=== PATIENT | female | born 1965 | race Caucasian/White ===

== ENCOUNTER 2025-02-27 00:28 | Day surgery (SDC) | payer OTHER, SELFPAY ==
[2025-02-16 14:49] VITALS: BMI 29.1
--- NOTE | 2025-02-16 15:17 | PC.NURSE ---
Report to the Outpatient Waiting Room, entrance under the green pavilion located off [facility], at time _0945 on date _02/27/25 . Planned Procedure Time: __1145 .? Time changes happen often and if your time is changed the preop area will call you the afternoon before. - You and your visitor will be asked to self-screen and do not enter if you have any COVID symptoms. Please call surgeon if you need to reschedule. - A mask is optional within the hospital at this time. Patients may have clear liquids (water, carbonated beverages, clear teas, apple juice) until 3 hours prior to surgery with a maximum of 20 ounces. - No food from midnight until time of surgery and no smoking, or chewing tobacco (or any form of nicotine). No chewing gum, candy or mints. Take only the following medications with a SIP of water on the morning of surgery: ___LEVOTHYROXINE DO NOT STOP ANY OF YOUR OTHER PRESCRIPTION MEDICATIONS PRIOR TO SURGERY EXCEPT THE FOLLOWING Hold all vitamins and supplements for 3 days per anesthesiologist. Medications to discontinue per physician N/A----TAKE MEDICATION PRESCRIBED BY DR. LEY FOR THE 5 DAYS LEADING UP TO SURGERY DIRECTED Date to take last dose Please no make-up, nail azeri, hairspray, perfume, deodorant, or body powder the day of surgery.? No jewelry (including any body piercings) or valuables the day of surgery, leave them at home.? Please take a shower or bath the night before, or the morning of, surgery with an antibacterial soap.? Wear comfortable, loose fitting clothing.? Children are encouraged to wear pajamas. - Jewelry must be removed prior to entering the operating room.? Rings and piercings that are not removed may be cut off. - The hospital will not accept responsibility for valuables.? - Please leave all valuables, including medications, at home the day of surgery. If you are going home after surgery, a licensed road driver must drive you home.? - NO public transportation without another adult if you receive anesthesia. - We recommend that an adult stay with you for 24 hours following discharge. - We also recommend that you do not drive, make important decision, drink alcoholic beverages, or take any drugs that were not prescribed by your health care provider for at least 24 hours after your discharge time. Follow any additional instructions given to you from your surgeon. Telephone instructions given to __EVE and asked if any additional questions and then verbalized understanding. Patient advised to call surgeon office or pre surgery nurse liaison [phone] if any additional questions.
--- OUTSIDE RECORDS SUMMARY | 2025-02-27 00:31 | XMS_ITS | Patient Health Record ---
Author Organization [facility] Address [address] [place], [place] [id number] Care Team Providers Care Yard Conductor Name Role Phone PAUL MCINTYRE Unavailable [phone] Millie Skaggs Unavailable Unavailable Reason For Referral No Information Medications Medication SIG (Take, Route, Frequency, Duration) Notes Start Date End Date Status Medrol Dosepak ORAL Medrol DosepakOr iginal MedicationMedrol Dosepak *Reorder from [employer] for eRx and Interaction Alerts* 10/30/2020 Active Plan Of Treatment No Information Insurance Providers Payer Name Payer Address Payer Phone Subscriber Number Group Number Insured Name Patient Relationship to Insured Coverage Start Date Coverage End Date [employer] [address] [place] [address] [id number] EVE HARRISON Self - patient is the insured [employer] [address] [place] [address] [id number] JAMES HARRISON Spouse - patient is the spouse of the insured
--- OUTSIDE RECORDS SUMMARY | 2025-02-27 00:32 | XMS_ITS | Clinical Summary ---
Author Organization [facility] Medical Office Building [address] [place] [address] Care Team Providers Care Self Sealing Fuel Tank Builder Name Role Phone Millie Skaggs MD Primary Care Provider [phone] Claudia Stanley MD Unavailable [phone] Allergies Active Allergy Reactions Criticality Noted Date Comments Sulfa (Sulfonamide Antibiotics) Hives Medium 06/17 Surgical History Surgery Date Site/Laterality Comments AUGMENTATION MAMMAPLASTY 11/16/1986 - 11/15/1987 Bilater al Silicone BREAST CYST ASPIRATION per patient ENDOMETRIAL ABLATION W/ TARA Family History Medical History Relation Name Comments Breast cancer Maternal Grandmother Ovarian cancer Sister Relation Name Status Comments Maternal Grandmother Sister Social History Tobacco Use Types Packs/Day Years Used Date Smoking Tobacco: Never Assessed Personal Safety Answer Date Recorded Have you ever been in or are you currently in a harmful physical or emotional relationship or is someone making you feel afraid or unsafe? Denies 11/07/2023 Comments No Sex and Gender Information Value Date Recorded Sex Assigned at Not on file Legal Sex Female 6:21 AM NOUGAT CANDY MAKER HELPER Gender Identity Not on file Sexual Orientation Not on file Obstetrics History Para Term AB IAB SAB Ectopic Multiple Livin g Live Births 3 3 3 Date Outcome GA Total Labor Labor/2nd/3rd Weight Sex Type Anes PTL Linda A1 A5 Name Clin Term Term Term Last Filed Vital Signs Vital Sign Reading Time Taken Comments Blood Pressure 136/84 11/07/2023 3:55 PM NOUGAT CANDY MAKER HELPER Pulse 74 11/07/2023 3:55 PM NOUGAT CANDY MAKER HELPER Temperature 36.9 C (98.4 F) 11/07/2023 3:55 PM NOUGAT CANDY MAKER HELPER Respiratory Rate 17 11/07/2023 3:55 PM NOUGAT CANDY MAKER HELPER Oxygen Saturation 99% 11/07/2023 3:55 PM NOUGAT CANDY MAKER HELPER Inhaled Oxygen Concentration - - Weight 74.8 kg (165 lb) 11/07/2023 3:55 PM NOUGAT CANDY MAKER HELPER Height 160 cm (5' 3 ) 11/07/2023 3:55 PM NOUGAT CANDY MAKER HELPER Body Mass Index 29.23 11/07/2023 3:55 PM NOUGAT CANDY MAKER HELPER Plan of Treatment Health Maintenance Due Date Last Done Comments Cervical Cancer Screening 1965 Colon Cancer Screening-Colonoscopy 1965 Depression Screening 1965 Hepatitis C Screening 1965 Hepatitis B Screening 1982 Regular Well Visit/Exam 18-64 1982 DTaP/Tdap/Td Vaccine (1 - Tdap) 12/16/2009 12/15/2009 Zoster Vaccine (1 of 2) 2014 Covid-19 Vaccine ( season) 2024 11/07/2021, 02/11/2021, 01/19/2021 Influenza Vaccine (#1) 2024 , 08/16/2020, 08/14/2020, Additional history exists Breast Cancer Screening-Mammogram 06/14/2025 06/14/2024, 03/18/2023, 03/18/2023, Additional history exists Pneumococcal vaccine <65 Aged Out No longer eligible based on patient's age to complete this topic Procedures Procedure Name Priority Date/Time Associated Diagnosis Comments SCREENING MAMMOGRAM BILATERAL W RICCO W IMPLANTS Schedule Routine, Read Routine (OP Routine) 06/14/2024 7:16 AM CDT Screening mammogram, encounter for from Last 3 Months or Most Recently Relevant to Health Maintenance Results * Screening Mammogram Bilateral W Ricco W Implants (06/14/2024 7:16 AM CDT) Anatomical Region Laterality Modality Breast Bilateral Mammography Impressions 06/14/2024 7:59 AM CDT BI-RADS ATLAS category (overall): 1 - Negative There is no mammographic evidence of malignancy. A 1 year screening mammogram is recommended. The patient has been or will be contacted. We recommend annual screening mammography for women at average risk of breast cancer beginning at age 40, based on guidelines of the [place] [employer] (ACR Practice Parameter for the Performance of Screening and Diagnostic Mammography) and [place] [employer]. For women with and elevated risk of breast cancer, please refer to the ACR Practice Parameter for specific screening recommendations. The patient will be entered into a reminder system with a target due date of 1 year for her next screening exam. Narrative 06/14/2024 7:59 AM CDT Screening Mammogram Bilateral W Ricco W Implants: 06/14/24 The study was acquired using full field digital technology and interpreted from soft copy. 2D digital mammographic views, as well as 3D digital tomosynthesis were performed in the implant included and displaced CC and MLO projections. CLINICAL: Screening mammogram, encounter for. No relevant medical history has been documented for this patient. History of breast cancer in Maternal Grandmother. COMPARISONS: 03/18/2023 Screening Mammogram Bilateral W Ricco W Implants 01/15/2022 Screening Mammogram Bilateral W Ricco W Implants BREAST TISSUE: The breasts are heterogeneously dense, which may obscure small masses. FINDINGS: Bilateral subglandular silicone breast implants are stable. The presence of implants limits the sensitivity of mammography. There is no new suspicious finding in either breast on mammogram. us Self Screening Mammogram IMG MAMMO PROCEDURES Fi nal Result from Last 3 Months or Most Recently Relevant to Health Maintenance Insurance [facility] Care Teams Self Sealing Fuel Tank Builder Relationship Specialty Start Date End Date Millie Skaggs MD [address] [facility] [address] [place] [address] PCP - General Family Medicine 03/18/23 Claudia Stanley MD [address] [facility] [address] [place] [address] Referring Physician Gynecology 03/18/23
--- OUTSIDE RECORDS SUMMARY | 2025-02-27 00:32 | XMS_ITS ---
Author Organization [facility] Address [address] [place], [place] [address] Care Team Providers Care Infrastructure Administrator Name Role Phone CORINEJay PAUL Unavailable [phone] Millie Skaggs Unavailable Unavailable REASON FOR VISIT orthotics, The patient has a hammertoe of the right foot and issues with the ball of her foot and arch. She likes to run and exercise and finds that custom orthotics help her. Her present pair is over 3 years old and needs to be replaced Medications Medication SIG (Take, Route, Frequency, Duration) Notes Start Date End Date Status Medrol Dosepak ORAL Medrol DosepakOr iginal MedicationMedrol Dosepak *Reorder from [employer] for eRx and Interaction Alerts* 10/30/2020 Active Vital Signs Height 64.00 in 09/29/2023 Weight 162 lbs 09/29/2023 BMI 27.8 kg/m2 09/29/2023 Height-cm 162.56 cm 09/29/2023 Weight-kg 73.48 kg 09/29/2023 Encounters Encounter Location Date Provider Diagnosis [facility] [address] [facility] [address] [place], [place] [id number] 09/29/2023 PAUL MCINTYRE Other hammer toe(s) (acquired), right foot M20.41 ; Plantar fascial fibromatosis M72.2 ; Metatarsalgia, right foot M77.41 ; Metatarsalgia, left foot M77.42 ; Pain in right foot M79.671 and Left foot pain M79.672 Assessments Encounter Date Diagnosis (ICD Code) Assessment Notes Treatment Notes Treatment Clinical Notes Section Notes 09/29/2023 Other hammer toe(s) (acquired), right foot (ICD-10 - M20.41) Hammertoe Deformity: Discussed various treatments for hammer toes with the patient . Discussed conservative care consisting of padding, wider shoes, anti-inflammatorie s, and orthotics. Discussed surgical treatment options and answered all questions about the intra-operative and post-operative treatment course. 09/29/2023 Plantar fascial fibromatosis (ICD-10 - M72.2) Plantar Fascitis: I discussed anti-inflammatory treatment options and various means of pronation control with the patient. I educated the patient on icing and stretching, supportive shoegear, and the use of orthotic devices. Orthotic Scan: The patient was scanned for functional orthotic devices. This was done in the subtalar joint neutral position in a non-weightbearing fashion. The patient will follow-up in 3-4 weeks time to be dispensed and fitted with the devices. Shoe Gear Recommendation: Advised patient on appropriate shoe gear for protection, healing and good foot health 09/29/2023 Metatarsalgia, right foot (ICD-10 - M77.41) Metatarsalgia: I discussed anti-inflammatory treatment options and various means of immobilization with the patient. I educated the patient on icing and stretching, supportive shoegear, and the use of orthotic devices and bracing. 09/29/2023 Metatarsalgia, left foot (ICD-10 - M77.42) 09/29/2023 Pain in right foot (ICD-10 - M79.671) 09/29/2023 Left foot pain (ICD-10 - M79.672) Plan Of Treatment Treatment Notes Assessment Notes Other hammer toe(s) (acquired), right fo ot Hammertoe Deformity: Discussed various treatments for hammer toes with the patient . Discussed conservative care consisting of padding, wider shoes, anti-inflammatories, and orthotics. Discussed surgical treatment options and answered all questions about the intra-operative and post-operative treatment course. Plantar fascial fibromatosis Plantar Fascitis: I discussed anti-inflammatory treatment options and various means of pronation control with the patient. I educated the patient on icing and stretching, supportive shoegear, and the use of orthotic devices. Orthotic Scan: The patient was scanned for functional orthotic devices. This was done in the subtalar joint neutral position in a non-weightbearing fashion. The patient will follow-up in 3-4 weeks time to be dispensed and fitted with the devices. Shoe Gear Recommendation: Advised patient on appropriate shoe gear for protection, healing and good foot health Metatarsalgia, right foot Metatarsalgia: I discussed anti-inflammatory treatment options and various means of immobilization with the patient. I educated the patient on icing and stretching, supportive shoegear, and the use of orthotic devices and bracing. Next Appt Details Follow Up: 4 Weeks, Reason: Orthotic dispense Progress Notes * EVE HARRISON WDOB:[birth year] (58 yo F)Acc No.[id number]:09/29/2023 Patient: RAJNI ESTRELLANNA Aster Provider: Ted Mcintyre DPM :1965 A ge:58 Y S ex:Female Date:09/29/2023 Address:[address] [place], [place] [id number] Subjective: * Chief Complaints: * 1 . Orthotics. 2. The patient has a hammertoe of the right foot and issues with the ball of her foot and arch. She likes to run and exercise and finds that custom orthotics help her. Her present pair is over 3 years old and needs to be replaced. * HPI: H PI: New Complaint E stablished patient presents with a new complaint., Patient complains of an issue to _ Daniele feet.. pt stats that she would like new orthtoics current pair over 3 years old. BS . * ROS: G eneral / Constitutional: Patient denies c hills, fever, weakness, night sweats. M usculoskeletal: Patient denies c hildhood foot problems, weakness. P atient complains of o rthotic use, arch pain, joint pain, hammertoes. P eripheral Vascular: Patient denies u lceration of feet, cold extremities. ? S kin: Patient denies u lcerations, discoloration. ? N eurologic: Patient denies b alance difficulty, confusion, difficulty speaking, dizziness. * Medical History: * Medications: T aking Medrol Dosepak ORAL , Notes to Pharmacist: Medrol DosepakOriginal MedicationMedrol Dosepak *Reorder from [facility] for eRx and Interaction Alerts* Objective: * Vitals: W t:162lbs, Wt-k.48 kg, Ht: 64.00 in, Ht-cm: 162.56 cm, BMI:27.8Index, Body Surface Area: 1.82. * Examination: C onstitutional: Constitutional T he patient is awake, alert, well developed, well groomed and well nourished.. D ermatologic: Skin findings: S kin is warm, dry, supple with no breaks in the skin.. V ascular: Dorsalis pedis pulse: 2 /4, bilateral. Posterior tibial pulse: 2 /4, bilaterally. Capillary refill: l ess than 3 seconds. Edema: N o edema, bilateral. N eurologic: Gross sensation G ross sensation is intact to light touch..? M usculoskeletal: Muscle Strength M uscle strength is 5/5 in regards to dorsiflexion, plantarflexion, inversion, and eversion in bilateral lower extremities.. Pain on palpation t enderness to the distal plantar fascia and bilateral metatarsal heads. Hammertoes d orsally contracted digit, 2nd toe of the right foot. The deformity is semi-rigid. Assessment: * Assessment: 1. P lantar fascial fibromatosis - M72.2 (Primary) 2 . O ther hammer toe(s) (acquired), right foot - M20.41 3 . M etatarsalgia, right foot - M77.41 4 . M etatarsalgia, left foot - M77.42 5 . P ain in right foot - M79.671 6 . L eft foot pain - M79.672 Plan: * Treatment: 2. O ther hammer toe(s) (acquired), right foot Notes: Hammertoe Deformity: Discussed various treatments for hammer toes with the patient . Discussed conservative care consisting of padding, wider shoes, anti-inflammatories, and orthotics. Discussed surgical treatment options and answered all questions about the intra-operative and post-operative treatment course. ? 3. M etatarsalgia, right foot Notes: Metatarsalgia: I discussed anti-inflammatory treatment options and various means of immobilization with the patient. I educated the patient on icing and stretching, supportive shoegear, and the use of orthotic devices and bracing. * Procedure Codes: L 3020 FT INSRT REMV MOLD LNGTUDNL SUPP EA, Modifiers: RT , NU, L3020 FT INSRT REMV MOLD LNGTUDNL SUPP EA, Modifiers: LT , NU * Follow Up: 4 Weeks (Reason: Orthotic dispense) * Billing Information: * Visit Code: 56738 Office Visit, Est Pt., Level 3. * Procedure Codes: L3020 FT INSRT REMV MOLD LNGTUDNL SUPP EA. Modifiers: RT, NU L3020 FT INSRT REMV MOLD LNGTUDNL SUPP EA. Modifiers: LT, NU * MILL TECHNICIAN Sign off status: Completed true * Provider: Ted Mcintyre DPM Date: 11/29/2022 Generated for Alexandria franks/Hailey/Jerrell on: 0 02/27/2025 12:31 AM CDT History and Physical Notes * HPI (History of Present Illness) Category Sub-Category Detail Notes Category Not es HPI New Complaint Established brenda ent presents with a new complaint., Patient complains of an issue to _ Daniele feet.. pt stats that she would like new orthtoics current pair over 3 years old. BS Examination Category Sub-Category Detail Notes Category Not es Dermatologic Skin findings: Skin is warm, dr y, supple with no breaks in the skin. Neurologic Gross sensation Gross sensation is intact to light touch. Vascular Dorsalis pedis pulse: 2/4, bilateral Edema: No edema, bilateral Capillary refill: less than 3 seconds Posterior tibial pulse: 2/4, bilaterally Musculoskeletal Muscle Strength Muscle strength is 5/5 in regards to dorsiflexion, plantarflexion, inversion, and eversion in bilateral lower extremities. Pain on palpation tenderness to the di stal plantar fascia and bilateral metatarsal heads Hammertoes dorsally contracted digit, 2nd toe of the right foot. The deformity is semi-rigid Constitutional Constitutional The patient is a wake, alert, well developed, well groomed and well nourished.
--- OUTSIDE RECORDS SUMMARY | 2025-02-27 00:32 | XMS_ITS | Referral Summary ---
Author Organization [facility] Medical [facility] Building [address] [place] [address] Care Team Providers Care Wage And Salary Specialist Name Role Phone Millie Skaggs MD Primary Care Provider [phone] Claudia Stanley MD Unavailable [phone] Allergies Active Allergy Reactions Criticality Noted Date Comments Sulfa (Sulfonamide Antibiotics) Hives Medium 06/17 Social History Tobacco Use Types Packs/Day Years [...] on file Legal Sex Female 6:21 AM SKIVER WELT END Gender Identity Not on file Sexual Orientation Not on file Last Filed Vital Signs Vital Sign Reading Time Taken Comments Blood Pressure 136/84 11/07/2023 3:55 PM SKIVER WELT END Pulse 74 11/07/2023 3:55 PM SKIVER WELT END Temperature 36.9 C (98.4 F) 11/07/2023 3:55 PM SKIVER WELT END Respiratory Rate 17 11/07/2023 3:55 PM SKIVER WELT END Oxygen Saturation 99% 11/07/2023 3:55 PM SKIVER WELT END Inhaled Oxygen Concentration - - Weight 74.8 kg (165 lb) 11/07/2023 3:55 PM SKIVER WELT END Height 160 cm (5' 3 ) 11/07/2023 3:55 PM SKIVER WELT END Body Mass Index 29.23 11/07/2023 3:55 PM SKIVER WELT END Plan of Treatment Not on file Procedures Procedure Name Priority Date/Time Associated Diagnosis [...] age 40, based on guidelines of the [place] [employer] (ACR Practice Parameter for the Performance of Screening and Diagnostic Mammography) and [place] [employer]. For women [...] Most Recently Relevant to Health Maintenance Insurance [facility] CLAIMS [facility] PPO Care Teams Wage And Salary Specialist Relationship Specialty Start Date End Date Millie Skaggs MD [address] [facility] [address] [place] [address] PCP - General Family Medicine 03/18/23 Claudia Stanley MD [address] [place] [address] Referring Physician Gynecology 03/18/23
--- OUTSIDE RECORDS SUMMARY | 2025-02-27 00:32 | XMS_ITS ---
Author Organization [facility] Address [address] [place], [place] [address] Care Team Providers Care Metal Drilling Machine Operator Name Role Phone MIGUELINA PAUL Unavailable [phone] Millie Skaggs Unavailable Unavailable REASON FOR VISIT *Orthotic pick-up, The patient is here to be dispensed and fitted for custom orthotics. She uses them for ball of foot pain and hammertoes Medications Medication SIG (Take, Route, Frequency, Duration) Notes Start Date End Date Status Medrol Dosepak ORAL Medrol DosepakOr iginal MedicationMedrol Dosepak *Reorder from [facility] for eRx and Interaction Alerts* 10/30/2020 Active Vital Signs Height 64.00 in 10/27/2023 Weight 162 lbs 10/27/2023 BMI 27.8 kg/m2 10/27/2023 Height-cm 162.56 cm 10/27/2023 Weight-kg 73.48 kg 10/27/2023 Encounters Encounter Location Date Provider Diagnosis [facility] [address] [facility] [address] [place], [place] [id number] 10/27/2023 PAUL MCINTYRE Other hammer toe(s) (acquired), right foot M20.41 ; Plantar fascial fibromatosis M72.2 ; Metatarsalgia, right foot M77.41 ; Metatarsalgia, left foot M77.42 ; Pain in right foot M79.671 and Left foot pain M79.672 Assessments Encounter Date Diagnosis (ICD Code) Assessment Notes Treatment Notes Treatment Clinical Notes Section Notes 10/27/2023 Other hammer toe(s) (acquired), right foot (ICD-10 - M20.41) Hammertoe Deformity: Discussed various treatments for hammer toes with the patient . Discussed conservative care consisting of padding, wider shoes, anti-inflammatorie s, and orthotics. Discussed surgical treatment options and answered all questions about the intra-operative and post-operative treatment course. 10/27/2023 Plantar fascial fibromatosis (ICD-10 - M72.2) Plantar Fascitis: I discussed anti-inflammatory treatment options and various means of pronation control with the patient. I educated the patient on icing and stretching, supportive shoegear, and the use of orthotic devices. Orthotic Dispense: The orthotic devices were dispensed and fitted. It was noted that the orthotic conformed well to the patient's foot in the subtalar joint neutral position. The patient was educated on the device's use, as well as the gradual break-in period for the device. 10/27/2023 Metatarsalgia, right foot (ICD-10 - M77.41) Metatarsalgia: I discussed anti-inflammatory treatment options and various means of immobilization with the patient. I educated the patient on icing and stretching, supportive shoegear, and the use of orthotic devices and bracing. 10/27/2023 Metatarsalgia, left foot (ICD-10 - M77.42) 10/27/2023 Pain in right foot (ICD-10 - M79.671) 10/27/2023 Left foot pain (ICD-10 - M79.672) Plan [...] and the use of orthotic devices. Orthotic Dispense: The orthotic devices were dispensed and fitted. It was noted that the orthotic conformed well to the patient's foot in the subtalar joint neutral position. The patient was educated on the device's use, as well as the gradual break-in period for the device. Metatarsalgia, right foot Metatarsalgia: I discussed anti-inflammatory treatment options and various means of immobilization with the patient. I educated the patient on icing and stretching, supportive shoegear, and the use of orthotic devices and bracing. Next Appt Details Follow Up: prn, Reason: Progress Notes * RAJNI HARRISONNNA WDOB:[birth year] (58 yo F)Acc No.[id number]:10/27/2023 Patient: EVE ESTRELLA W Provider: Ted Mcintyre DPM :1965 A ge:58 Y S ex:Female Date:10/27/2023 Address:[address] [place] [address], [place] [address] Subjective: * Chief Complaints: * 1 . *Orthotic pick-up. 2. The patient is here to be dispensed and fitted for custom orthotics. She uses them for ball of foot pain and hammertoes. * HPI: H PI: Follow Up Visit P atient presents for follow up visit for orthotic draft roller picker. M A: As. * ROS: G eneral / Constitutional: Patient [...] Pharmacist: Medrol DosepakOriginal MedicationMedrol Dosepak *Reorder from [facility] for eRx and Interaction Alerts* Objective: * [...] use of orthotic devices and bracing. * Follow Up: p rn * Billing Information: * Visit Code: 80285 Office Visit, Est Pt., Level 3. * Procedure Codes: * RANCH HAND Sign off status: Completed true * Provider: Ted Mcintyre DPM Date: 12/28/2022 Generated for Alexandria Padgett/Jerrell on: 0 02/27/2025 12:32 AM CDT History and Physical Notes * HPI (History of Present Illness) Category Sub-Category Detail Notes Category Not es HPI Follow Up Visit Patient presents for follow up visit for orthotic draft roller picker. MA: As Examination Category Sub-Category Detail Notes Category Not [...]
--- OUTSIDE RECORDS SUMMARY | 2025-02-27 00:32 | XMS_ITS | Continuity of Care Document ---
Author Name [facility] Organization [facility] Care Team Providers Care Connie Cleaner Name Role Phone [facility] Unavailable Unavailable Medications Combined list of outpatient medications from Department of Defense and Veterans Affairs facilities.Medications provided include 1) outpatient medications from the last 15 months, and 2) patient-reported medications. Medication Details Route Status Patient Instructions Prescription Expires Prescription Number Last Dispense Date Ordering Provider Order Date Order Qty Source loteprednol 0.5% ophthalmic gel INSTILL 1 DROP IN EACH EYE TWICE A DAY, # 5 g, 3 total refill(s ), Acute Complet ed 08/10/20232022 5.0 Ambulat ory Pharmac y Immunizations Combined list of available immunizations from the Department of Defense and Veterans Affairs facilities. Immunization Series Date Given Administered By Site Reaction Lot Number CVX Code Drug Roller Shop Utility Worker Status Comments Source influenza virus vaccine,split 2005 zzLef t Arm [id number] 15 GlaxoSmithKli ne complet ed influenza virus vaccine,s plit 10/29/06 Given Ambulat ory Pharmac y influenza virus vaccine,split 2005 [id number] 15 GlaxoSmithKli ne complet ed influenza virus vaccine,s plit 10/29/06 Given Ambulat ory Pharmac y influenza virus vaccine,split 2004 zzLef t Arm [id number] 15 sanofi pasteur complet ed influenza virus vaccine,s plit 10/02/05 Given Ambulat ory Pharmac y influenza virus vaccine, whole virus 2002 zzLef t Arm [id number] 16 sanofi pasteur complet ed influenza virus vaccine, whole virus 10/11/03 Given Ambulat ory Pharmac y influenza virus vaccine, whole virus 2002 [id number] 16 sanofi pasteur complet ed influenza virus vaccine, whole virus 10/11/03 Given Ambulat ory Pharmac y influenza virus vaccine, whole virus 2000 zzLef t Arm [id number] 16 sanofi pasteur complet ed influenza virus vaccine, whole virus 10/21/01 Given Ambulat ory Pharmac y influenza virus vaccine, whole virus 2000 [id number] 16 sanofi pasteur complet ed influenza virus vaccine, whole virus 10/21/01 Given Ambulat ory Pharmac y Procedures Combined list of: 1) Procedures from Department of Veterans Affairs facilities going back up to thelast 18 months, not all ID non-surgical procedures are included; 2) All procedures from the Department of Defense facilities. Procedure Procedure Type Code Date Perfomer Comments Sourc e No data available for this section Ambulatory P harmacy Assessment and Plan Combined list of future care activities from Department of Defense and Veterans [facility] facilities (e.g., assessment and plan notes, appointments, orders, and referrals). Additional future care activities may be listed in the Plan of Care section. Result Assessment and Plan Date Source Assessment and Plan No data available for this section 02/27/2025 Ambulatory Pharmacy Functional Status Combined list of recent functional and cognitive assessments recorded at Department of Defense and Veterans Affairs (ID).VA Functional [place] Measurement (FIM) Scale: 1 = Total Assistance (Subject = 0% +), 2 = Maximal Assistance (Subject = 25% +), 3 = Moderate Assistance (Subject = 50% +), 4 = Minimal Assistance (Subject = 75% +), 5 = Supervision, 6 = Modified [place] (Device), 7 = Complete [place] (Timely, Safely). Assessment Date/Time Source Assessment Type Assessment Skill Assessment Score Assessment Details No data available for this section
--- OUTSIDE RECORDS SUMMARY | 2025-02-27 00:32 | XMS_ITS | Encounter Summary ---
Author Organization [facility] Address [facility] [place] [address] Care Team Providers Care Rn Integrity Name Role Phone Millie Skaggs MD Primary Care Provider [phone] Conchita Brooks MD Unavailable [phone] Claudia Stanley MD Unavailable [phone] Encounter Details Date Type Department Care Team (Latest Contact Info) Description 07/09/2018 Abstract [facility] , Sonny Mraia MD Social History Tobacco Use Types Packs/Day Years Used Date Smoking Tobacco: Never Smokeless Tobacco: Never Alcohol Use Standard Drinks/Week Comments Yes 0 (1 standard drink = 0.6 oz pur e alcohol) socially Comments No Sex and Gender Information Value Date Recorded Sex Assigned at Not on file Legal Sex Female 6:01 PM CDT Gender Identity Not on file Sexual Orientation Not on file documented as of this encounter Plan of Treatment Not on file documented as of this encounter Visit Diagnoses Not on filedocumented in this encounter Additional Health Concerns Infection Onset Date Last Indicated Resolved Time COVID-19 Rule Out 10/18/2021 10/18/2021 10/18/2021 11:27 AM AMMONIUM NITRATE NEUTRALIZER COVID-19 Confirmed 10/18/2021 10/18/2021 12:33 AM AMMONIUM NITRATE NEUTRALIZER documented as of this encounter Care Teams Rn Integrity Relationship Specialty Start Date End Date Millie Skaggs MD [address] [facility] [address] [place] [address] PCP - General FAMILY PRACTICE 01/23/18 Conchita Brooks MD [address] [facility] [address] [place] [address] DERMATOLOGY 10/28/23 Claudia Stanley MD [address] [place] [address] OBGYN 10/28/23 documented as of this encounter
--- OUTSIDE RECORDS SUMMARY | 2025-02-27 00:32 | XMS_ITS | Clinical Summary ---
Author Organization [facility] Address [address] [place] [address] Care Team Providers Care Cigarette Making Machine Hopper Feeder Name Role Phone Millie Skaggs MD Primary Care Provider [phone] Conchita Brooks MD Unavailable [phone] Claudia Stanley MD Unavailable Allergies Active Allergy Reactions Criticality Noted Date Comments Sulfa Antibiotics Hives 07/08/2017 Medications Multiple Vitamins-Minerals (ICAPS AREDS 2 OR) Active probiotic capsule Take 1 capsule by mouth 3 (three) times daily with meals. Active COMBIPATCH 0.05-0.25 MG/DAY LEXIE 1 PATCH TWICE WEEKLY Active LOTEMAX 0.5 % ophthalmic gel Active vitamin D3, cholecalciferol, 5000 UNITS capsule Take 1 capsule (125 mcg total) by mouth daily. Active B Complex Cap capsule Take 1 capsule by mouth daily. Active Carboxymethylcell ulose Sodium 1 % Gel Apply 1 drop to eye. Active ALTRENO 0.05 % Lotion 021 Active Roflumilast (ZORYVE) 0.3 % Cream Apply 1 Application topically daily. 023 Active Sulfacetamide Sodium-Sulfur 10-5 % Liquid Apply topically daily. 023 Active spironolactone (ALDACTONE) 100 MG tablet Take 1 tablet (100 mg total) by mouth daily. 024 Active valACYclovir (VALTREX) 1 g tabletIndications :Recurrent cold sores TAKE TWO TABLETS NOW AND THEN TWO TABLETS IN TWELVE HOURS 20 tablet 024 Active levothyroxine (SYNTHROID) 50 MCG tabletIndications :Acquired hypothyroidism Take 1 tablet (50 mcg total) by mouth every morning. 90 tablet 3 025 Active levothyroxine (SYNTHROID) 50 MCG tabletIndications :Acquired hypothyroidism TAKE 1 TABLET(50 MCG) BY MOUTH EVERY MORNING 90 tablet 025 2024 Discontinued levothyroxine (SYNTHROID) 50 MCG tabletIndications :Acquired hypothyroidism TAKE 1 TABLET(50 MCG) BY MOUTH EVERY MORNING 90 tablet 025 2024 Discontinued(R eorder) Active Problems Problem Noted Date Diagnosed Date Chondromalacia, patella, right 07/28/2024 Osteoarthritis of right patellofemoral joint Mitral valve insufficiency, unspecified etiology 04/08/2024 CUELLAR (dyspnea on exertion) 04/07/2024 Pure hypercholesterolemia 04/07/2024 COVID-19 virus infection 10/20/2021 Pulmonary nodule 07/26/2018 Abdominal pain, colicky 01/28/2018 Abdominal bloating 01/07/2018 At high risk for breast cancer 07/08/2017 Neck muscle spasm 05/06/2017 SI joint arthritis 05/06/2017 Knee pain, right 12/12/2016 Allergic rhinitis 11/14/2015 Bright red blood per rectum 11/14/2015 Cervical disc disease 11/14/2015 Chronic low back pain 11/14/2015 Menopausal hot flushes 11/14/2015 Overview (03/07/2019): Description: paroxetine from chief psychologist Jesus 07/30/2011 Acne vulgaris 07/30/2011 Immunizations Immunization Administration Dates Next Due Fluzone 6 Months+ Quad (0.5 mL Prefilled Syringe) 11/07/2021,08/16/2020,09/26/2019 Influenza (Generic) 08/14/2020, 5,10/29/2006,2004,10/11/2003,10/21/2001 Influenza Adult (Generic) 09/26/2019 PFIZER COVID-19 (ORIGINAL FORMULATION, PURPLE CAP) mRNA, LNP-S, PF, 30 MCG/0.3 ML DOSE 11/07/2021 Td (Tenivac) preservative free 12/15/2009 Family History Medical History Relation Comments Diabetes Mother Heart Disease Mother Hypertension Mother Cancer Paternal Grandfather Ovarian Cancer Sister Relation Status Comments Father Other biological fathe r unknown Mother Alive leaky valve Paternal Grandfather colorectal Sister ovarian Social History Tobacco Use Types Packs/Day Years Used Date Smoking Tobacco: Never Passive Smoke Exposure: Never Smokeless Tobacco: Never Tobacco Cessation:Counseling Given: No Comments:physician will discuss if necessary Alcohol Use Standard Drinks/Week Comments Yes 0 (1 standard drink = 0.6 oz pur e alcohol) socially PHQ-2 Answer Date Recorded Patient Health Questionnaire-2 Score 2 12/02/2023 Comments No Sex and Gender Information Value Date Recorded Sex Assigned at Not on file Legal Sex Female 6:01 PM CDT Gender Identity Not on file Sexual Orientation Not on file Last Filed Vital Signs Vital Sign Reading Time Taken Comments Blood Pressure 126/86 10/06/2024 9:50 AM WHEEL BLOCKER Pulse 71 10/06/2024 9:50 AM WHEEL BLOCKER Temperature 36.6 C (97.8 F) 10/06/2024 9:50 AM WHEEL BLOCKER Respiratory Rate 14 10/06/2024 9:50 AM WHEEL BLOCKER Oxygen Saturation 99% 10/06/2024 9:50 AM WHEEL BLOCKER Inhaled Oxygen Concentration - - Weight 78.6 kg (173 lb 3.2 oz) 10/06/2024 9:50 A M WHEEL BLOCKER Height 160 cm (5' 3 ) 10/06/2024 9:50 AM WHEEL BLOCKER Body Mass Index 30.68 10/06/2024 9:50 AM WHEEL BLOCKER Plan of Treatment Health Maintenance Due Date Last Done Comments Cervical Cancer Screening Pap Smear (Age 30 to 64) Every 3 Years 1964 Pneumococcal Vaccine: Pediatrics (0 to 5 Years) and At-Risk Patients (6 to 49 Years) (1 of 2 - PCV) 1970 Hepatitis C 1982 Cervical Cancer Screening Pap with HPV Testing (Age 30 to 64) Every 5 Years 1994 DTaP, Tdap and Td Vaccines (1 - Tdap) 12/16/2009 12/15/2009 Zoster Vaccines (1 of 2) 2014 RSV Immunization or 60+ Years (1 - Risk 60-74 years 1-dose series) 2024 COVID-19 Vaccine ( season) 2024 11/07/2021, 02/11/2021, 01/19/2021 PHQ-2 (Physician [place]) 11/16/2024 12/02/2023 Annual Physical 10/06/2025 10/06/2024, 10/16, 05/09/2021 Colorectal Cancer Screening Colonoscopy (10 Years) 12/18/2025 12/18/2015, 11/01/2014 Mammogram Screening 06/14/2026 06/14/2024, 06/14/2024, 03/18/2023, Additional history exists Cervical Cancer Screening with HPV 10/30/2031 Postponed from 1994 (Going to Outside Clinic) Meningococcal B Vaccine Aged Out No l onger eligible based on patient's age to complete this topic Meningococcal Vaccine Aged Out No rama jimmy eligible based on patient's age to complete this topic RSV Immunizations Under 20 Months Aged Out No longer eligible based on patient's age to complete this topic Procedures Procedure Name Priority Date/Time Associated Diagnosis Comments TSH W/REFLEX Routine 01/30/2025 7:49 AM CDT Acquired hypothyroidism MAMMOGRAM GENERIC (SCAN ORDER) 06/14/2024 COLONOSCOPY Routine 12/18/2015 12:00 AM WHEEL BLOCKER from Last 3 Months or Most Recently Relevant to Health Maintenance Results * TSH W/REFLEX (01/30/2025 7:49 AM CDT) TSH 2.03 0.40 - 4.50 mIU/L [facility] 01/30/2025 7:49 AM CDT 01/30/2025 7:49 AM CDT Narrative [facility] - JOSE ORDERS - 01/31/2025 1:44 AM CDT FASTING:UNKNOWN FASTING: UNKNOWN Resulting Agency Comment Performing Organization Information: Site ID: [place] Name: [facility] Address: [address] [place] [address] [place] [address] Director: Ricky Avalos MD us Millie Skaggs MD LABORATORY Final Result [facility] [address] [place] [address], [place] * MAMMOGRAM GENERIC (SCAN ORDER) (06/14/2024) Anatomical Region Laterality Modality Other 06/14/2024 us Doc [facility] Scanned SCANNING Final Resu lt * Colonoscopy (12/18/2015 12:00 AM WHEEL BLOCKER) 12/18/2015 12/18/2015 Narrative [facility] TO EPIC CONVERSION - 12/18/2015 12:00 AM WHEEL BLOCKER Documented hx of procedure Procedure Note , Generic Conversion, - 09/19/2018 Documented hx of procedure us Generic Conversion Md [facility]DEL[facility] PROCEDURE ORDERABLES Final Result [facility] TO EPIC CONVERSION from Last 3 Months or Most Recently Relevant to Health Maintenance Insurance [facility] Care Teams Cigarette Making Machine Hopper Feeder Relationship Specialty Start Date End Date Millie Skaggs MD [address] [facility] [address] [place] [address] PCP - General FAMILY PRACTICE 01/23/18 Conchita Brooks MD [address] [facility] [address] [place] [address] DERMATOLOGY 10/28/23 Claudia Stanley MD [address] [facility] [address] [place] [address] OBGYN 10/28/23
--- OUTSIDE RECORDS SUMMARY | 2025-02-27 00:32 | XMS_ITS | Clinical Summary ---
Author Organization [facility] Address [address] [place] [address] Care Team Providers Care Automobile Body Repair Supervisor Name Role Phone Millie Skaggs MD Primary Care Provider [phone] Source Comments [facility],non-owned Affiliates and Associated Physician Practices is amultiple site organization consisting of ambulatory clinics and hospital sitesin [place], [place], [place] and [place]. This disclosure is being madepursuant to the Care Everywhere program and may not contain all information available regarding this patient. Last updated 18.[facility] Allergies Active Allergy Reactions Criticality Noted Date Comments Sulfur Skin Reactions 07/30/2011 Medications * Be aware that medications may not be up to date on this document. Alwaysverify current medications with the patient. valACYclovir (VALTREX) 1 GM tablet Take two tablets now and then two tablets in twelve hours 12 tablet 8 Active Additional Information Patient not taking.Reported on 09/21/2024 estradiol-noret hindrone (COMBIPATCH) 0.05-0.25 MG/DAY patch Apply 1 patch to skin Two times a week 0 Active vitamin D3 (CHOLECALCIFERO L) 125 MCG (5000 UT) capsule Take 1 (one) capsule by mouth once daily Active REFRESH CELLUVISC 1 % ophthalmic gel Instill 1 (one) drop into both eyes as needed 0 Active levothyroxine (Synthroid) 50 MCG tablet Take 1 (one) tablet by mouth every morning 4 Active loteprednol (Lotemax) 0.5 % ophthalmic gel Instill 1 (one) drop into both eyes 2 times daily 3 Active Tretinoin (Altreno) 0.05 % lotionIndicatio ns:Acne vulgaris Apply to affected area once daily 45 g 11 4 Active sulfacetamide sodium-sulfur (Clenia) 10-5 % emulsionIndicat ions:Acne vulgaris,Rosace a Apply to affected area once daily 227 g 11 4 Active spironolactone (Aldactone) 100 MG tabletIndicatio ns:Acne vulgaris Take 1 (one) tablet by mouth once daily Take 1 pill (100 mg) by mouth once daily 90 tablet 11 4 Active Roflumilast (Zoryve) 0.3 % CREAIndications :Other psoriasis 1 Application by Apply externally route once daily 60 g 3 4 Active clobetasol (Temovate) 0.05 % solutionIndicat ions:Other psoriasis Apply back of scalp twice daily when itchy. 30 days supply. 50 mL 3 4 Active Active Problems Problem Noted Date Diagnosed Date Osteoarthritis of right patellofemoral joint Mitral valve insufficiency 04/08/2024 Pure hypercholesterolemia 04/07/2024 COVID-19 virus infection 10/20/2021 Pulmonary nodule 07/26/2018 Abdominal pain, colicky 01/28/2018 Abdominal bloating 01/07/2018 At high risk for breast cancer 07/08/2017 Neck muscle spasm 05/06/2017 SI joint arthritis 05/06/2017 Knee pain, right 12/12/2016 Allergic rhinitis 11/14/2015 Cervical disc disease 11/14/2015 Bright red blood per rectum 11/14/2015 Chronic low back pain 11/14/2015 Menopausal hot flushes 11/14/2015 Overview (06/18/2019): Overview: Description: paroxetine from music professor Josefa 07/30/2011 Acne 07/30/2011 Immunizations Immunization Administration Dates Next Due INFLUENZA VACCINE 08/14/2020 Family History Medical History Relation Name Comments Cancer - Skin, Non Melanoma Brother Cancer - Skin, Non Melanoma Father Cancer - Skin, Melanoma Neg Hx Relation Name Status Comments Brother Father Social History Tobacco Use Types Packs/Day Years Used Date Smoking Tobacco: Never Smokeless Tobacco: Never Alcohol Use Standard Drinks/Week Comments Yes 0 (1 standard drink = 0.6 oz pur e alcohol) Comments Unknown Sex and Gender Information Value Date Recorded Sex Assigned at Not on file Legal Sex Female 5:18 PM QUALITY PROCESS LEAD Gender Identity Not on file Sexual Orientation Not on file Plan of Treatment Health Maintenance Due Date Last Done Comments COLOGUARD (AGES 45-75) - COLON CA SCREENING 1964 COLON MONITORING 1964 COLONOSCOPY - COLON CA SCREENING 1964 CT COLONOGRAPHY - COLON CA SCREENING 1964 Colorectal Cancer Screening 1964 FIT - COLON CA SCREENING 1964 FLEX SIG - COLON CA SCREENING 1964 PAP SMEAR 1964 HIV SCREENING 1979 HEPATITIS C SCREENING 06/27/1982 DTAP/TDAP/TD VACCINES (1 - Tdap) 1983 PNEUMOCOCCAL VACCINE 50+ (1 of 1 - PCV) 2014 ZOSTER VACCINE (1 of 2) 2014 COVID-19 VACCINE (2 - season) 2024 11/07/2021 DEPRESSION SCREENING 11/16/2024 INFLUENZA VACCINE (Season Ended) 2025 11/07/2021, 08/16/2020, 08/14/2020, Additional history exists MAMMOGRAM 06/14/2026 06/14/2024, 05/18, 06/14/2024, Additional history exists LIPID TESTING 11/04/2028 11/04/2023, 07/18, 04/05/2019 Respiratory Syncytial Virus (RSV) Vaccine Pt: or over 60 yrs (1 - 1-dose 75+ series) 2039 HEPATITIS B VACCINE Aged Out No longe r eligible based on patient's age to complete this topic HIB VACCINE Aged Out No longer eligi ble based on patient's age to complete this topic HPV VACCINE Aged Out No longer eligi ble based on patient's age to complete this topic MENINGOCOCCAL (Group B) VACCINE SHARED DECISION-MAKING Aged Out No longer eligible based on patient's age to complete this topic MENINGOCOCCAL GROUPS A/C/Y/W VACCINE Aged Out No longer eligible based on patient's age to complete this topic PNEUMOCOCCAL VACCINE Aged Out No long er eligible based on patient's age to complete this topic Insurance [facility] [place] [employer] [facility] [place] A[employer] Care Teams Automobile Body Repair Supervisor Relationship Specialty Start Date End Date Millie Skaggs MD [address] [facility] [address] [place] [phone] PCP - General 05/05/18
--- NOTE | 2025-02-27 08:29 | WPDHPUPDATE1 ---
History and Physical Update Update Date/Time: 02/27/25 08:29 History and Physical has been reviewed, including an updated exam of the patient. There are NO changes in the patient's condition. Risks, benefits, and alternatives have been discussed and questions answered. Patient agrees to proceed with procedure.
--- NOTE | 2025-02-27 08:29 | PM.HPGS ---
History of Present Illness History of Present Illness Consent: Risks, benefits, and alternatives have been discussed and questions answered. Patient agrees to proceed with procedure. Chief complaint: Post Menopausal Bleeding Narrative: Irlanda Castanon is a 59 year old female reports bleeding like a menstrual cycle that became quite heavy. Pelvic ultrasound revealed a thickened endometrium. It was recommended to undergo D&C hysteroscopy for further evaluation. Risks of infection, bleeding, perforation, and possible pathology are reviewed. Patient voices understanding and agrees to proceed. Review of Systems Review of Systems: not repeated day of surgery; patient states no changes in status PMFSH Past Medical History Medical History (Updated 02/27/25 @ 08:32 by Claudia Stanley MD) (normal spontaneous vaginal delivery) X3 Panic attacks Hypothyroid Surgical History Surgical History (Updated 02/27/25 @ 08:31 by Claudia Stanley MD) History of breast implant Status post LEEP (loop electrosurgical excision procedure) of cervix Status post tubal ligation H/O neck surgery Social History Social History Smoking status: Never smoker Alcohol intake: current Substance use: never Substance use type: does not use Living arrangements: with family Spiritual care concerns: No Meds Home Medications and Allergies Home Medications ?Medication ?Instructions ?Recorded ?Confirmed ?Type estradiol 0.05 mg-norethindrone 1 patch transdermal .BI-WEEKL 02/16/25 02/16/25 History 0.25 mg/24 hr semiwkly transderm patch (CombiPatch) levothyroxine 50 mcg tablet 50 mcg PO DAILY 02/16/25 02/16/25 History spironolactone 100 mg tablet 100 mg PO DAILY 02/16/25 02/16/25 History Allergies Allergy/AdvReac Type Severity Reaction Status Date / Time Sulfa (Sulfonamide Allergy Intermediate HIVES Verified 02/16/25 15:12 Antibiotics) Exam Const: General: healthy appearing and alert Orientation/consciousness: patient oriented x3 Resp: Effort & Inspection: normal respiratory effort : External Female Exam: normal external appearance Speculum Exam - Vagina: normal appearance of the vagina and normal vaginal discharge Speculum Exam - Cervix: normal appearance of the cervix Bimanual exam- vagina & uterus: uterine size normal and consistency normal Bimanual Exam- Adnexa, other: normal adnexae and No adnexal tenderness Neuro: General: patient oriented x3 Assessment and Plan Assessment and plan (1) Post-menopausal bleeding: Code(s): N95.0 - Postmenopausal bleeding Status: Acute Assessment and Plan: Plan to proceed with D&C hysteroscopy
[2025-02-27 10:14] VITALS: BP 108/68; PULSE 78; TEMP 36.5; O2SAT 98; BMI 30.3
[2025-02-27] MEDS: ACETAMINOPHEN 500 MG TABLET 1000 MG PO (10:17)
[2025-02-27] MEDS: LACTATED RINGERS 1,000 ML 30 ML IV CONT (10:17)
--- NOTE | 2025-02-27 10:37 | P.PNAN_ITS ---
Anes - Initial Pre Proc Eval Procedure: Operation Date: 02/27/25 11:45 Proposed Procedures p Hysteroscopy Dilation and Curettage - Claudia Stanley MD Date/Time: 02/27/25 10:37 Surgeon: Claudia Stanley MD Pre Op Diagnosis: Post Menopausal Bleeding Patient Data Age: 59 Gender: F Height: 1.63 m Weight: 80.1 kg Last Vital Signs Temp 36.5 C 02/27/25 10:14 Pulse 78 02/27/25 10:14 BP 108/68 02/27/25 10:14 Pulse Ox 98 02/27/25 10:14 O2 Del Method Room Air 02/27/25 10:14 Allergies Allergy/AdvReac Type Severity Reaction Status Date / Time Sulfa (Sulfonamide Allergy Intermediate HIVES Verified 02/16/25 15:12 Antibiotics) Home Medications ?Medication ?Instructions ?Recorded ?Confirmed ?Type estradiol 0.05 mg-norethindrone 1 patch transdermal .BI-WEEKL 02/16/25 02/27/25 History 0.25 mg/24 hr semiwkly transderm patch (CombiPatch) levothyroxine 50 mcg tablet 50 mcg PO DAILY 02/16/25 02/27/25 History spironolactone 100 mg tablet 100 mg PO DAILY 02/16/25 02/27/25 History Patient hx anesthesia problems: none Family hx anesthesia problems: none Results Review: All pre-operative results and documents have been reviewed as part of the pre- operative evaluation. [facility] [place] Past Medical History Medical History (normal spontaneous vaginal delivery) X3 Panic attacks Hypothyroid Surgical History Surgical History History of breast implant Status post LEEP (loop electrosurgical excision procedure) of cervix Status post tubal ligation H/O neck surgery Social History Social History Smoking status: Never smoker Alcohol intake: current Substance use: never Substance use type: does not use Living arrangements: with family Spiritual care concerns: No Anes - Eval Final PreProcedure Day of Procedure 02/27/25 10:37 Patient weight: obese Heart: regular rate and rhythm Lungs: clear to auscultation Airway: Mallampati scale class II Neurological: alert and oriented Last oral intake: >/= 8 hours ASA classification: II Emergent: no Anesthetic plan: proceed Anesthesia type and monitoring: general GIVS and standard monitoring Results Review: All pre-operative results and documents have been reviewed as part of the pre- operative evaluation. Informed Consent: The patient's anesthetic plan and its attendant risks and benefits were discussed with the patient/family/POA. Questions were solicited and answers provided to the satisfaction of the patient/family/POA.
--- NOTE | 2025-02-27 11:48 | P.OP_ITS ---
Procedure Note - Detailed Date of Procedure 02/27/25 Pre-op Diagnosis Post Menopausal Bleeding Post-op Diagnosis Same Procedure Performed D&C hysteroscopy Surgeon Claudia Stanley MD Anesthesia MAC Findings Internal cervical os was very stenotic. Endometrium was scarred consistent with prior ablation. Description of Procedure The patient is taken to the operating room placed under anesthesia in the dorsal lithotomy position. She was prepped and draped in the usual sterile fashion. [place] speculum was placed in the vagina and cervix grasped on the anterior lip with a tenaculum. The uterus sound only goes to 4cm. There is internal cervical stenosis. The Hegar dilators are attempted and not able to pass. The os Finders are used and a small opening is noted. Hydrodissection into that small opening revealed a very scarred endometrium consistent with the prior ablation. The hysteroscope was removed and the sharp curette is used to curette the endometrium until a good uterine cry was noted all areas. Instruments are removed. Sponge, needle, and instrument counts are correct per the OR staff. The patient was taken to recovery in stable condition. Estimated Blood Loss 5 Drains No Packing No Pathology Yes (Endometrial curettings) Complications No immediate complications Condition Stable Disposition PACU
[2025-02-27 11:50] VITALS: BP 106/66; PULSE 65; RESP 14; O2SAT 94
[2025-02-27] MEDS: oxyCODONE HCL (*CRX) 5 MG TAB IR PO (12:14)
[2025-02-27 12:20] VITALS: BP 111/64; PULSE 57; RESP 14
[2025-02-27 12:40] VITALS: BP 108/64; PULSE 67; RESP 14
== END 2025-02-27 12:45 | disposition home or self-care (01) ==
PROVIDERS: PCP Family Medicine; Visit Provider Obstetrics & Gynecology Gynecology
PROC: 0U5B8ZZ Destruction of Endometrium, Via Natural or Artificial Opening Endoscopic (ICD-10-PCS; CPT 58563; principal; 2025-02-27 11:45)
DX: R93.89 Abnormal findings on diagnostic imaging of other specified body structures (principal); N88.2 Stricture and stenosis of cervix uteri; E03.9 Hypothyroidism, unspecified; F41.0 Panic disorder [episodic paroxysmal anxiety]; E66.9 Obesity, unspecified; Z68.30 Body mass index [BMI] 30.0-30.9, adult; Z98.890 Other specified postprocedural states; Z98.51 Tubal ligation status; Z98.1 Arthrodesis status
CPT/HCPCS: 58558; 88305; A9270; J1100; J2003; J2250; J2704; J3010; J7120